=== PATIENT | male | born 1995 | race Caucasian/White ===

== ENCOUNTER 2017-09-28 09:18 | Emergency (ER) | payer BC | END 2017-09-28 10:07 | disposition home or self-care (01) | LOC: FTE 10:07 | DX: H92.02 Otalgia, left ear (principal); R05 Cough | CPT/HCPCS: 99283; Z7502 ==

== ENCOUNTER 2019-01-10 17:02 | Emergency (ER) | payer BC | END 2019-01-10 18:34 | disposition home or self-care (01) | LOC: FTE 17:02 | DX: Z04.1 Encounter for examination and observation following transport accident (principal) | CPT/HCPCS: 99282; Z7502 ==